=== PATIENT | male | born 2000 | race Caucasian/White ===

== ENCOUNTER 2023-06-11 19:00 | Emergency (ER) | payer OTHER, SELFPAY ==
[2023-06-11 19:31] VITALS: BP 144/82; PULSE 70; RESP 16; TEMP 36.8; O2SAT 97; BMI 24.8
--- NOTE | 2023-06-11 19:57 | ED.WOUNDLAC ---
HPI - Wound/Laceration General Chief Complaint: Laceration/Wound Stated Complaint: hand lac Time Seen by Provider: 06/11/23 19:41 Source: patient Mode of arrival: ambulatory Limitations: no limitations History of Present Illness HPI narrative: 22 year male coming in today complaining of laceration to the palm of the hand. This occurred on a sharp piece of metal on a boat he was working on. Tetanus shot was updated in 2010. Denies any other injury. Related Data Home Medications Medication Instructions Recorded Confirmed albuterol sulfate .ROUTE PRN 06/11/23 cetirizine .ROUTE PRN 06/11/23 Allergies Allergy/AdvReac Type Severity Reaction Status Date / Time Penicillins Allergy Mild Hives Verified 06/11/23 19:48 tree nut Allergy Mild Anaphylaxis Verified 06/11/23 19:48 Review of Systems Status of ROS: Reports: 6 or more systems reviewed and unremarkable except as noted in History and below [facility] Social History Smoking Status: Never smoker Do you use any of these nicotine containing products: None Second hand tobacco smoke exposure: No How often do you have a drink containing alcohol: 2-3 times a week AUDIT-C Alcohol total score: 3 Non-prescribed substance use: denies use Exam Narrative: Exam Narrative: Well-nourished well-developed patient in no acute distress. Alert and oriented. Answers questions appropriately. Mood and affect are appropriate. Thoughts are goal oriented and rational. No tangential or magical thinking noted. Patient speaks in full sentences without needing to catch his breath. HEENT: Normocephalic atraumatic. Pupils are equally round reactive to light. Extraocular muscles are intact. Conjunctivae are moist without any icterus noted. Moist mucous membranes. Extremities: Patient has a laceration at the base of the 4th digit on the palmar surface that extends across the surface of the entire finger. Goes through the epidermis into the subcutaneous tissue, does not penetrate through the subcutaneous tissue. The skin is gaping open. There is no visible bone or tendon. He has full range of motion flexion and extension of all fingers. Const: Vital Signs, click to edit/add: Vital Signs - 24 hr 06/11/23 19:31 Temperature 98.3 F Pulse Rate [Pulse Oximeter] 70 Respiratory Rate 16 Blood Pressure [Le ft Upper Arm] 144/82 H Pulse Oximetry 97 Oxygen Delivery Me thod Room Air Course Course Hospital Course: Laceration was anesthetized with lidocaine in the entire area was cleaned, wound was explored. Five sutures with 4 Ethilon were placed without complication. Vital Signs Vital signs: Initial Vital Signs Temperature 98.3 F 06/11/23 19:31 Temperature Source Temporal Artery Scan 06/11/23 19:31 Pulse Rate 70 06/11/23 19:31 Respiratory Rate 16 06/11/23 19:31 Blood Pressure 144/82 H 06/11/23 19:31 Blood Pressure Mean 102 06/11/23 19:31 Blood Pressure Position Sitting 06/11/23 19:31 Pulse Oximetry 97 06/11/23 19:31 Oxygen Delivery Method Room Air 06/11/23 19:31 Vital Signs Temperature 98.3 F 06/11/23 19:31 Pulse Rate 70 06/11/23 19:31 Respiratory Rate 16 06/11/23 19:31 Blood Pressure 144/82 H 06/11/23 19:31 Pulse Oximetry 97 06/11/23 19:31 Oxygen Delivery Method Room Air 06/11/23 19:31 Temperature 98.3 F 06/11/23 19:31 Pulse Rate 70 06/11/23 19:31 Respiratory Rate 16 06/11/23 19:31 Blood Pressure 144/82 H 06/11/23 19:31 Pulse Oximetry 97 06/11/23 19:31 Oxygen Delivery Method Room Air 06/11/23 19:31 MDM - Wound/Laceration MDM Narrative Medical decision making narrative: Laceration treated per above. Tetanus shot was updated today in the ED. We discussed wound hygiene, signs and symptoms of infection reasons to return for follow-up. We discussed suture removal in 5-7 days with primary care provider. Patient had no other questions. Discharge Plan Discharge Clinical Impression: Laceration Patient Disposition: Home, Self-Care Condition: Improved Additional Instructions: Keep finger clean and dry. Okay to shower like you normally would but do not soak the hand such as going swimming. Sutures should be removed in approximately 5-7 days with your primary care provider. Return if there are any signs of infection which include redness of the finger or drainage of pus from the laceration. Prescriptions: No Action albuterol sulfate .ROUTE PRN cetirizine [Zyrtec] .ROUTE PRN Follow Up/Referrals: Provider,Not a Local [Primary Care Provider] - Stand Alone Forms: [employer] Info Instructions
[2023-06-11] MEDS: TETANUS/DIPHTH/PERTUSSIS 0.5 ML SYRINGE IM (20:10)
--- NOTE | 2023-06-11 20:10 | ED.NURSE ---
Adacel, 0.5 mL, administered IM right deltoid, per verbal MD orders. Tdap vaccine information given and consent received. Lot number [id number], expiration 05/02/25.
[2023-06-11 20:18] VITALS: BP 132/74; PULSE 74; RESP 16; TEMP 36.8; O2SAT 97
== END 2023-06-11 20:33 | disposition home or self-care (01) ==
LOC: ED 20:29
PROVIDERS: Emergency Provider Family Medicine
DX: S61.411A Laceration without foreign body of right hand, initial encounter (principal)
CPT/HCPCS: 12001; 90471; 90715; 99283; 99284

== ENCOUNTER 2024-08-26 09:42 | Outpatient (CLI) | payer OTHER, SELFPAY | END 2024-08-26 09:43 | disposition home or self-care (01) | LOC: LKVREF 09:43 | PROVIDERS: Visit Provider Family Medicine | DX: Z00.00 Encounter for general adult medical examination without abnormal findings (principal); Z13.6 Encounter for screening for cardiovascular disorders | CPT/HCPCS: 80061 ==